=== PATIENT | male | born 1995 | race American Indian/Alaskan Native ===

== ENCOUNTER 2021-05-15 06:52 | Emergency (ER) | payer SELFPAY ==
[2021-05-15] MEDS ORDERED: diphenhydrAMINE 50 MG/ML VIAL IV ONE (07:30)
[2021-05-15] MEDS ORDERED: FAMOTIDINE 20 MG/2 ML INJ IV ONE (07:30)
[2021-05-15] MEDS ORDERED: SODIUM CHLORIDE 0.9% 1000 ML 1,000 ML IV ONE (07:30)
[2021-05-15] MEDS ORDERED: METOCLOPRAMIDE 10 MG/2 ML INJ IV ONE (07:30)
[2021-05-15 07:58] LABS: Basophils # (Auto) 0.1 K/mm3 (0.0-0.1); Basophils % (Auto) 0.5 % (0.0-1.8); Hematocrit 53.2 % (35.5-45.6); Hemoglobin 17.7 gm/dl (11.8-15.2); Lymphocytes # (Auto) 0.7 K/mm3 (1.2-5.4); Lymphocytes % (Auto) 6.1 % (13.4-35.0); Mean Corpuscular HGB Conc 33 % (32-34); Mean Corpuscular Volume 88 fl (84-94); Monocytes # (Auto) 1.4 K/mm3 (0.0-0.8); Monocytes % (Auto) 12.3 % (0.0-7.3); Platelet Count 174 K/mm3 (140-440); Red Blood Count 6.06 M/mm3 (3.65-5.03); Red Cell Distribution Width 13.9 % (13.2-15.2)
[2021-05-15 08:10] LABS: Partial Thromboplastin Time 26.3 Sec. (24.2-36.6)
[2021-05-15 08:28] LABS: Alanine Aminotransferase TNR units/L (7-56)
[2021-05-15 09:22] LABS: Alanine Aminotransferase 25 units/L (7-56); Albumin 4.5 g/dL (3.9-5); BUN/Creatinine Ratio 24; Blood Urea Nitrogen 24 mg/dL (9-20); Calcium 9.2 mg/dL (8.4-10.2); Hemolysis Index 7
--- NOTE | 2021-05-15 09:32 | Cat Scan Report ---
CT ABDOMEN AND PELVIS WITH IV CONTRAST INDICATION: n/v and abdominal pain-PO AND IV contrast pls 100 ml omni 300 . COMPARISON: None available. TECHNIQUE: All CT scans at this facility use dose modulation, automated exposure control, iterative reconstructi on or weight based dosing, when appropriate, to reduce radiation dose to as low as reasonably achieva ble. FINDINGS: Lung Bases: No significant abnormality. Skeletal System: No acute abnormality. ABDOMEN: Liver: No significant abnormality. Gallbladder: No significant abnormality. Bile Ducts: No significant abnormality. Adrenals: No significant abnormality. Right Kidney: No significant abnormality. Left Kidney: No significant abnormality. Pancreas: No significant abnormality. Spleen: No significant abnormality. Upper GI tract: No significant abnormality. Lymph Nodes: No significant adenopathy. Aorta: No significant abnormality. Additional Findings: No significant abnormality. PELVIS: Colon: No acute abnormality. Urinary Bladder and Distal Ureters: No significant abnormality. Appendix: No significant abnormality. Lymph Nodes: No significant adenopathy. Additional Findings: None. IMPRESSION: 1. No acute process in the abdomen or pelvis. 2. Incidental findings, as above. Signer Name: Jose Alfredo Perales MD Signed: 05/15/2021 9:28 AM Workstation Name: [id number]
[2021-05-15] MEDS ORDERED: POTASSIUM CHLORIDE ER 20 MEQ TAB PO ONE (10:11)
--- NOTE | 2021-05-15 10:21 | Emergency Department Report ---
ED Abdominal Pain HPI - General Chief Complaint: Nausea/Vomiting/Diarrhea Stated Complaint: VOMITING Time Seen by Provider: 05/15/21 07:18 Source: patient Mode of arrival: Ambulatory Limitations: No Limitations - History of Present Illness Initial Comments: This is a 26-year-old male nontoxic, well nourished in appearance, no acute signs of distress presents to the ED with c/o of nausea and vomiting and abdominal pain several days. Patient describes vomiting as dark in color. Patient describes abdominal pain as cramping and aching with level of 8/10 diffuse. Patient denies chest pain, short of breath, fever, hemoptysis, blood in stool, chills, headache, stiff neck, numbness or tingling. Patient denies any diarrhea or constipation. Denies any blood in stool. Patient denies any recent travels. Patient stated allergies to amoxicillin. Denies any significant past medical history. Patient denies any alcohol or drug consumption. MD Complaint: abdominal pain -: days(s) Location: diffuse Radiation: none Migration to: no migration Severity: mild Severity scale (0 -10): 8 Quality: aching Consistency: constant Improves With: nothing Worsens With: nothing Associated Symptoms: nausea, vomiting. denies: diarrhea, fever, chills, constipation, dysuria, hematemesis, hematochezia, melena, hematuria, anorexia, syncope - Related Data Previous Rx's Medication Instructions Recorded Last Taken Type Dicyclomine [Bentyl] 20 mg PO Q12H PRN #12 tablet 05/15/21 Unknown Rx Ondansetron [Zofran Odt] 4 mg PO Q8HR PRN #12 tab.rapdis 05/15/21 Unknown Rx Allergies Allergy/AdvReac Type Severity Reaction Status Date / Time amoxicillin Allergy Swelling Verified 05/15/21 06:58 ED Review of Systems ROS: Stated complaint: VOMITING Other details as noted in HPI Comment: All other systems reviewed and negative Constitutional: denies: chills, fever Eyes: denies: eye pain, eye discharge, vision change ENT: denies: ear pain, throat pain Respiratory: denies: cough, shortness of breath, wheezing Cardiovascular: denies: chest pain, palpitations Endocrine: no symptoms reported Gastrointestinal: abdominal pain, nausea, vomiting. denies: diarrhea, constipation, hematemesis, melena, hematochezia Genitourinary: denies: urgency, dysuria Musculoskeletal: denies: back pain, joint swelling, arthralgia Skin: denies: rash, lesions Neurological: denies: headache, weakness, paresthesias Psychiatric: denies: anxiety, depression Hematological/Lymphatic: denies: easy bleeding, easy bruising ED Past Medical Hx - Past Medical History Previous Medical History?: No - Surgical History Past Surgical History?: No - Medications Home Medications: Home Medications Medication Instructions Recorded Confirmed Last Taken Type Dicyclomine [Bentyl] 20 mg PO Q12H PRN #12 tablet 05/15/21 Unknown Rx Ondansetron [Zofran Odt] 4 mg PO Q8HR PRN #12 tab.rapdis 05/15/21 Unknown Rx ED Physical Exam - General Limitations: No Limitations General appearance: alert, in no apparent distress - Head Head exam: Present: atraumatic, normocephalic - Eye Eye exam: Present: normal appearance - Neck Neck exam: Present: normal inspection, full ROM. Absent: lymphadenopathy - Respiratory Respiratory exam: Present: normal lung sounds bilaterally. Absent: respiratory distress, wheezes, rales, rhonchi, stridor, chest wall tenderness, accessory muscle use, decreased breath sounds, prolonged expiratory - Cardiovascular Cardiovascular Exam: Present: normal rhythm, tachycardia, normal heart sounds. Absent: bradycardia, irregular rhythm, systolic murmur, diastolic murmur, rubs, gallop - GI/Abdominal GI/Abdominal exam: Present: soft, tenderness (Diffuse), normal bowel sounds. Absent: distended, guarding, rebound, rigid, diminished bowel sounds - Extremities Exam Extremities exam: Present: full ROM - Back Exam Back exam: Present: normal inspection, full ROM. Absent: tenderness, CVA tenderness (R), CVA tenderness (L), muscle spasm, paraspinal tenderness, vertebral tenderness, rash noted - Neurological Exam Neurological exam: Present: alert, oriented X3, normal gait - Psychiatric Psychiatric exam: Present: normal affect, normal mood - Skin Skin exam: Present: warm, dry, intact, normal color. Absent: rash ED Course Vital Signs 05/15/21 05/15/21 05/15/21 06:53 12:07 13:04 Temperature 97.7 F Pulse Rate 118 H 87 86 Respiratory 18 98 H 14 Rate Blood Pressure 144/99 122/82 125/83 [Right] O2 Sat by Pulse 100 12 L 98 Oximetry - Reevaluation(s) Reevaluation #1: 05/15/21 10:21 Patient is speaking in full sentences with no signs of distress noted. ED Medical Decision Making - Lab Data Result diagrams: 05/15/21 07:42 05/15/21 08:40 Lab Results 05/15/21 05/15/21 05/15/21 Range/Units 07:42 07:42 07:42 WBC 11.3 H (4.5-11.0) K/mm3 RBC 6.06 H (3.65-5.03) M/mm3 Hgb 17.7 H (11.8-15.2) gm/dl Hct 53.2 H (35.5-45.6) % MCV 88 (84-94) fl MCH 29 (28-32) pg MCHC 33 (32-34) % RDW 13.9 (13.2-15.2) % Plt Count 174 (140-440) K/mm3 Lymph % (Auto) 6.1 L (13.4-35.0) % [place] % (Auto) 12.3 H (0.0-7.3) % Eos % (Auto) 0.0 (0.0-4.3) % Baso % (Auto) 0.5 (0.0-1.8) % Lymph # (Auto) 0.7 L (1.2-5.4) K/mm3 [place] # (Auto) 1.4 H (0.0-0.8) K/mm3 Eos # (Auto) 0.0 (0.0-0.4) K/mm3 Baso # (Auto) 0.1 (0.0-0.1) K/mm3 Seg Neutrophils % 81.1 H (40.0-70.0) % Seg Neutrophils # 9.2 H (1.8-7.7) K/mm3 PT 14.3 (12.2-14.9) Sec. INR 1.00 (0.87-1.13) APTT 26.3 (24.2-36.6) Sec. Sodium TNR Potassium TNR Chloride TNR Carbon Dioxide TNR Anion Gap TNR BUN TNR Creatinine TNR Estimated GFR TNR BUN/Creatinine Ratio TNR Glucose TNR Calcium TNR Total Bilirubin TNR AST TNR ALT TNR Alkaline Phosphatase TNR Total Protein TNR Albumin TNR Albumin/Globulin Ratio TNR Lipase TNR Urine Color (Yellow) Urine Turbidity (Clear) Urine pH (5.0-7.0) Ur Specific Lena (1.003-1.030) Urine Protein (Negative) mg/dL Urine Glucose (UA) (Negative) mg/dL Urine Ketones (Negative) mg/dL Urine Blood (Negative) Urine Nitrite (Negative) Urine Bilirubin (Negative) Urine Urobilinogen (<2.0) mg/dL Ur Leukocyte Esterase (Negative) Urine WBC (Auto) (0.0-6.0) /HPF Urine RBC (Auto) (0.0-6.0) /HPF Urine Mucus /HPF 05/15/21 05/15/21 Range/Units 08:40 11:47 WBC (4.5-11.0) K/mm3 RBC (3.65-5.03) M/mm3 Hgb (11.8-15.2) gm/dl Hct (35.5-45.6) % MCV (84-94) fl MCH (28-32) pg MCHC (32-34) % RDW (13.2-15.2) % Plt Count (140-440) K/mm3 Lymph % (Auto) (13.4-35.0) % [place] % (Auto) (0.0-7.3) % Eos % (Auto) (0.0-4.3) % Baso % (Auto) (0.0-1.8) % Lymph # (Auto) (1.2-5.4) K/mm3 [place] # (Auto) (0.0-0.8) K/mm3 Eos # (Auto) (0.0-0.4) K/mm3 Baso # (Auto) (0.0-0.1) K/mm3 Seg Neutrophils % (40.0-70.0) % Seg Neutrophils # (1.8-7.7) K/mm3 PT (12.2-14.9) Sec. INR (0.87-1.13) APTT (24.2-36.6) Sec. Sodium 141 Potassium 3.5 L Chloride 100.7 Carbon Dioxide 26 Anion Gap 18 BUN 24 H Creatinine 1.0 Estimated GFR > 60 BUN/Creatinine Ratio 24 Glucose 196 H Calcium 9.2 Total Bilirubin 0.30 AST 20 ALT 25 Alkaline Phosphatase 68 Total Protein 7.8 Albumin 4.5 Albumin/Globulin Ratio 1.4 Lipase Urine Color Yellow (Yellow) Urine Turbidity Clear (Clear) Urine pH 6.0 (5.0-7.0) Ur Specific Lena 1.060 H (1.003-1.030) Urine Protein 100 mg/dl (Negative) mg/dL Urine Glucose (UA) Neg (Negative) mg/dL Urine Ketones Neg (Negative) mg/dL Urine Blood Sm (Negative) Urine Nitrite Neg (Negative) Urine Bilirubin Neg (Negative) Urine Urobilinogen 4.0 (<2.0) mg/dL Ur Leukocyte Esterase Neg (Negative) Urine WBC (Auto) < 1.0 (0.0-6.0) /HPF Urine RBC (Auto) 3.0 (0.0-6.0) /HPF Urine Mucus Few /HPF - Radiology Data [facility] [address] [place] [address] Cat Scan Report Signed Patient: DENNIS DENNIS MR#: [id number] : 1995 Acct:[id number] Age/Sex: 26 / M ADM Date: 05/15/21 Loc: ED Attending Dr: Ordering Physician: HAYDEN SAHA NP Date of Service: 05/15/21 Procedure(s): CT abdomen pelvis w con Accession Number(s): [id number] cc: HAYDEN SAHA NP CT ABDOMEN AND PELVIS WITH IV CONTRAST INDICATION: n/v and abdominal pain-PO AND IV contrast pls 100 ml omni 300 . COMPARISON: None available. TECHNIQUE: All CT scans at this facility use dose modulation, automated exposure control, iterative reconstruction or weight based dosing, when appropriate, to reduce radiation dose to as low as reasonably achievable. FINDINGS: Lung Bases: No significant abnormality. Skeletal System: No acute abnormality. ABDOMEN: Liver: No significant abnormality. Gallbladder: No significant abnormality. Bile Ducts: No significant abnormality. Adrenals: No significant abnormality. Right Kidney: No significant abnormality. Left Kidney: No significant abnormality. Pancreas: No significant abnormality. Spleen: No significant abnormality. Upper GI tract: No significant abnormality. Lymph Nodes: No significant adenopathy. Aorta: No significant abnormality. Additional Findings: No significant abnormality. PELVIS: Colon: No acute abnormality. Urinary Bladder and Distal Ureters: No significant abnormality. Appendix: No significant abnormality. Lymph Nodes: No significant adenopathy. Additional Findings: None. IMPRESSION: 1. No acute process in the abdomen or pelvis. 2. Incidental findings, as above. Signer Name: Jose Alfredo Perales MD Signed: 05/15/2021 9:28 AM Workstation Name: [id number] Transcribed By: SANDHYA Dictated By: Jose Alfredo Perales MD Electronically Authenticated By: Jose Alfredo Perales MD Signed Date/Time: 05/15/21927 DD/ 1 TD/TT: - Medical Decision Making This is a 26-year-old male that presents with abdominal pain with nausea vomiting. Patient is stable and was examined by me. Labs obtained. UA obtained. CT of abdomen obtained and dictated by the radiologist. Patient is notified of the report with no questions noted by the patient. Vital signs are stable prior to discharge. Patient received medical treatment in the ED which patient stated symptoms has resovled and subsided. Was instructed note to operate any machinery due to possible drowsiness and stated someone will drive the patient h ome. A by mouth challenge has been obtained and patient tolerated well with no nausea vomiting. Patient was also instructed to Follow-up with a primary care doctor in 3-5 days or if symptoms worsen and continue return to emergency room as soon as possible. At time of discharge, the patient does not seem toxic or ill in appearance. No acute signs of distress noted. Patient agrees to discharge treatment plan of care. No further questions noted by the patient. Critical care attestation.: If time is entered above; I have spent that time in minutes in the direct care o f this critically ill patient, excluding procedure time. ED Disposition Clinical Impression: Abdominal pain Qualifiers: Abdominal location: generalized Qualified Code(s): R10.84 - Generalized abdominal pain Nausea & vomiting Qualifiers: Vomiting type: unspecified Vomiting Intractability: non-intractable Qualified Code(s): R11.2 - Nausea with vomiting, unspecified Disposition: HOME / SELF CARE / HOMELESS Is pt being admited?: No Does the pt Need Aspirin: No Condition: Stable Instructions: Abdominal Pain, Adult, [id number], Nausea and Vomiting, Adult Additional Instructions: Follow-up with a primary care and gripper installer doctor in 3-5 days or if symptoms worsen and continue return to emergency room as soon as possible. Prescriptions: Dicyclomine [Bentyl] 20 mg PO Q12H PRN #12 tablet PRN Reason: abdominal pain Ondansetron [Zofran Odt] 4 mg PO Q8HR PRN #12 tab.rapdis PRN Reason: Nausea Referrals: PRIMARY MD DENNY [Primary Care Provider] - 3-5 Days JOHNNIE DAVALOS MD [Staff Physician] - 3-5 Days [facility] [Provider Group] - 3-5 Days Forms: Work/School Release Form(ED) Time of Disposition: 13:05
[2021-05-15 10:24] LABS: Blood Urea Nitrogen TNR mg/dL (9-20)
[2021-05-15 10:25] LABS: Albumin TNR g/dL (3.9-5); BUN/Creatinine Ratio TNR; Calcium TNR mg/dL (8.4-10.2); Hemolysis Index TNR
[2021-05-15 12:26] LABS: Bilirubin,Urine NEG (Negative); Blood,Urine SM (Negative); Color,Urine Yellow (Yellow); Mucus,Urine FEW /HPF; WBC,Urine < 1.0 /HPF (0.0-6.0)
[2021-05-15 13:04] VITALS: BP 125/83
== END 2021-05-15 13:50 | disposition home or self-care (01) ==
LOC: ED 06:52
DX: R10.84 Generalized abdominal pain (principal); R11.2 Nausea with vomiting, unspecified; Z88.0 Allergy status to penicillin
CPT/HCPCS: 36415; 74177; 80053; 81001; 85025; 85610; 85730; 96361; 96374; 96375; 99284; J1200; J2765; J3490; J7030; Q9967; Q0162

== ENCOUNTER 2021-05-25 18:09 | Observation (INO) | payer SELFPAY ==
[2021-05-25] MEDS ORDERED: SODIUM CHLORIDE 0.9% 1000 ML 1,000 ML IV ONE ×3 (18:24→22:10)
[2021-05-25] MEDS ORDERED: ONDANSETRON 4 MG/2 ML INJ IV ONE ×2 (18:24→22:10)
[2021-05-25 19:18] LABS: Basophils % (Auto) 0.5 % (0.0-1.8); Eosinophils # (Auto) 0.1 K/mm3 (0.0-0.4); Eosinophils % (Auto) 1.2 % (0.0-4.3); Hematocrit 52.1 % (35.5-45.6); Hemoglobin 17.5 gm/dl (11.8-15.2); Lymphocytes # (Auto) 2.4 K/mm3 (1.2-5.4); Lymphocytes % (Auto) 30.4 % (13.4-35.0); Mean Corpuscular HGB Conc 34 % (32-34); Mean Corpuscular Volume 87 fl (84-94); Monocytes # (Auto) 1.1 K/mm3 (0.0-0.8); Monocytes % (Auto) 13.3 % (0.0-7.3); Platelet Count 301 K/mm3 (140-440); Red Blood Count 5.99 M/mm3 (3.65-5.03); Red Cell Distribution Width 13.5 % (13.2-15.2)
[2021-05-25] MEDS ORDERED: FAMOTIDINE 20 MG/2 ML INJ IV ONE (19:21)
[2021-05-25 19:42] LABS: Alanine Aminotransferase 23 units/L (7-56); Albumin 4.2 g/dL (3.9-5); BUN/Creatinine Ratio 13; Blood Urea Nitrogen 17 mg/dL (9-20); Calcium 9.3 mg/dL (8.4-10.2); Hemolysis Index 69
[2021-05-25] MEDS ORDERED: POTASSIUM CHLORIDE ER 20 MEQ TAB PO ONE (19:52)
[2021-05-25] MEDS ORDERED: POTASSIUM CHLORIDE 10 MEQ 10 MEQ/100 ML BAG IV ONE (20:53)
[2021-05-25] MEDS ORDERED: METOCLOPRAMIDE 10 MG/2 ML INJ IV ONE (22:10)
[2021-05-25] MEDS ORDERED: diphenhydrAMINE 50 MG/ML VIAL IV ONE (22:10)
--- NOTE | 2021-05-25 22:37 | Emergency Department Report ---
ED N/V/D HPI - General Chief complaint: Nausea/Vomiting/Diarrhea Stated complaint: NAUSEA/VOMITING Time Seen by Provider: 05/25/21 18:41 Source: patient, old records reviewed Mode of arrival: Ambulatory Limitations: No Limitations - History of Present Illness Initial comments: 26-year-old male with a past medical history of bipolar disorder and depression presents to the hospital with complaints of nausea vomiting with poor p.o. intake for the last 2 weeks. Patient states he usually vomited within 30 minutes of eating anything and is having difficulty tolerating liquids as well. Patient complains of some mild abdominal soreness. He states he passed out in triage after feeling weak. Patient was seen here May 15 with same symptoms. Had unremarkable labs and a CT abdomen pelvis that was negative for acute abnormalities. Patient states he had similar symptoms in October 2020 and never followed up for recommended GI follow-up/endoscopy. Patient states he drinks alcohol on occasion and does use marijuana - Related Data Previous Rx's Medication Instructions Recorded Last Taken Type Dicyclomine [Bentyl] 20 mg PO Q12H PRN #12 tablet 05/15/21 Unknown Rx Ondansetron [Zofran Odt] 4 mg PO Q8HR PRN #12 tab.rapdis 05/15/21 Unknown Rx Allergies Allergy/AdvReac Type Severity Reaction Status Date / Time amoxicillin Allergy Swelling Verified 05/15/21 06:58 ED Review of Systems ROS: Stated complaint: NAUSEA/VOMITING Other details as noted in HPI Comment: All other systems reviewed and negative ED Past Medical Hx - Medications Home Medications: Home Medications Medication Instructions Recorded Confirmed Last Taken Type Dicyclomine [Bentyl] 20 mg PO Q12H PRN #12 tablet 05/15/21 Unknown Rx Ondansetron [Zofran Odt] 4 mg PO Q8HR PRN #12 tab.rapdis 05/15/21 Unknown Rx ED Physical Exam - General Limitations: No Limitations - Other Other exam information: General: No acute distress, thin appearing Head: Atraumatic Eyes: normal appearance ENT: Moist mucous membranes Neck: Normal appearance, no midline tenderness Chest: Clear to auscultation bilaterally CV: Regular rate and rhythm Abdomen: Soft, normal bowel sounds, nontender, nondistended, no rebound or guarding Back: Normal inspection Extremity: Normal inspection, full range of motion Neuro: Alert O x 3, no facial asymmetry, speech clear, no gross motor sensory deficit Psych: Appropriate behavior Skin: No rash ED Course Vital Signs 05/25/21 05/25/21 05/25/21 18:04 18:12 18:16 Temperature 99.2 F Pulse Rate 109 H 107 H Respiratory 13 14 Rate Blood Pressure 105/76 Blood Pressure 105/76 [Left] O2 Sat by Pulse 93 98 98 Oximetry 05/25/21 05/25/21 05/25/21 18:30 18:46 19:00 Temperature Pulse Rate 109 H 99 H 93 H Respiratory 25 H 17 25 H Rate Blood Pressure 105/76 111/83 111/83 Blood Pressure [Left] O2 Sat by Pulse 99 98 97 Oximetry 05/25/21 05/25/21 05/25/21 19:16 19:30 19:46 Temperature Pulse Rate 88 82 94 H Respiratory 22 14 19 Rate Blood Pressure 115/77 115/77 129/81 Blood Pressure [Left] O2 Sat by Pulse 100 98 98 Oximetry 05/25/21 05/25/21 05/25/21 20:00 20:16 20:30 Temperature Pulse Rate 101 H 95 H 98 H Respiratory 17 15 17 Rate Blood Pressure 129/81 135/88 135/88 Blood Pressure [Left] O2 Sat by Pulse 100 100 95 Oximetry 05/25/21 05/25/21 05/25/21 20:46 21:00 21:16 Temperature Pulse Rate 90 88 97 H Respiratory 17 22 21 Rate Blood Pressure 121/87 135/87 135/88 Blood Pressure [Left] O2 Sat by Pulse 98 100 99 Oximetry 05/25/21 05/25/21 05/25/21 21:30 21:46 22:00 Temperature Pulse Rate 85 81 81 Respiratory 10 L 21 20 Rate Blood Pressure 135/87 129/85 129/85 Blood Pressure [Left] O2 Sat by Pulse 99 97 98 Oximetry 05/25/21 05/25/21 05/25/21 22:16 22:30 22:45 Temperature Pulse Rate 87 79 78 Respiratory 26 H 19 12 Rate Blood Pressure 129/85 129/85 129/92 Blood Pressure [Left] O2 Sat by Pulse 99 98 100 Oximetry 05/25/21 23:01 Temperature 98.1 F Pulse Rate Respiratory 17 Rate Blood Pressure Blood Pressure [Left] O2 Sat by Pulse 99 Oximetry - Consultations Consultation #1: 05/25/21 22:55 EKG reviewed and discussed with on-call [facility] mr teacher Dr. leal and states that it is likely repolarization. ED Medical Decision Making - Lab Data Result diagrams: 05/25/21 18:33 05/25/21 23:29 Lab Results 05/25/21 05/25/21 05/25/21 Range/Units 18:33 18:33 18:33 WBC 7.9 (4.5-11.0) K/mm3 RBC 5.99 H (3.65-5.03) M/mm3 Hgb 17.5 H (11.8-15.2) gm/dl Hct 52.1 H (35.5-45.6) % MCV 87 (84-94) fl MCH 29 (28-32) pg MCHC 34 (32-34) % RDW 13.5 (13.2-15.2) % Plt Count 301 (140-440) K/mm3 Lymph % (Auto) 30.4 (13.4-35.0) % [place] % (Auto) 13.3 H (0.0-7.3) % Eos % (Auto) 1.2 (0.0-4.3) % Baso % (Auto) 0.5 (0.0-1.8) % Lymph # (Auto) 2.4 (1.2-5.4) K/mm3 [place] # (Auto) 1.1 H (0.0-0.8) K/mm3 Eos # (Auto) 0.1 (0.0-0.4) K/mm3 Baso # (Auto) 0.0 (0.0-0.1) K/mm3 Seg Neutrophils % 54.6 (40.0-70.0) % Seg Neutrophils # 4.3 (1.8-7.7) K/mm3 Sodium 129 L (137-145) mmol/L Potassium 2.7 L* (3.6-5.0) mmol/L Chloride 79.8 L (98-107) mmol/L Carbon Dioxide 31 H (22-30) mmol/L Anion Gap 21 mmol/L BUN 17 (9-20) mg/dL Creatinine 1.3 (0.8-1.3) mg/dL Estimated GFR > 60 ml/min BUN/Creatinine Ratio 13 % Glucose 146 H (75-100) mg/dL Calcium 9.3 (8.4-10.2) mg/dL Magnesium 2.40 H (1.7-2.3) mg/dL Total Bilirubin 0.50 (0.1-1.2) mg/dL AST 19 (5-40) units/L ALT 23 (7-56) units/L Alkaline Phosphatase 75 (35-129) units/L Total Protein 6.7 (6.3-8.2) g/dL Albumin 4.2 (3.9-5) g/dL Albumin/Globulin Ratio 1.7 % Lipase 31 (13-60) units/L Urine Color (Yellow) Urine Turbidity (Clear) Urine pH (5.0-7.0) Ur Specific [place]rough (1.003-1.030) Urine Protein (Negative) mg/dL Urine Glucose (UA) (Negative) mg/dL Urine Ketones (Negative) mg/dL Urine Blood (Negative) Urine Nitrite (Negative) Urine Bilirubin (Negative) Urine Urobilinogen (<2.0) mg/dL Ur Leukocyte Esterase (Negative) Urine WBC (Auto) (0.0-6.0) /HPF Urine RBC (Auto) (0.0-6.0) /HPF U Epithel Cells (Auto) (0-13.0) /HPF Urine Mucus /HPF Urine Opiates Screen Urine Methadone Screen Ur Barbiturates Screen Ur Phencyclidine Scrn Ur Amphetamines Screen U Benzodiazepines Scrn Urine Cocaine Screen U Marijuana (THC) Screen Drugs of Abuse Note 05/25/21 05/25/21 Range/Units 23:03 23:03 WBC (4.5-11.0) K/mm3 RBC (3.65-5.03) M/mm3 Hgb (11.8-15.2) gm/dl Hct (35.5-45.6) % MCV (84-94) fl MCH (28-32) pg MCHC (32-34) % RDW (13.2-15.2) % Plt Count (140-440) K/mm3 Lymph % (Auto) (13.4-35.0) % [place] % (Auto) (0.0-7.3) % Eos % (Auto) (0.0-4.3) % Baso % (Auto) (0.0-1.8) % Lymph # (Auto) (1.2-5.4) K/mm3 [place] # (Auto) (0.0-0.8) K/mm3 Eos # (Auto) (0.0-0.4) K/mm3 Baso # (Auto) (0.0-0.1) K/mm3 Seg Neutrophils % (40.0-70.0) % Seg Neutrophils # (1.8-7.7) K/mm3 Sodium (137-145) mmol/L Potassium (3.6-5.0) mmol/L Chloride (98-107) mmol/L Carbon Dioxide (22-30) mmol/L Anion Gap mmol/L BUN (9-20) mg/dL Creatinine (0.8-1.3) mg/dL Estimated GFR ml/min BUN/Creatinine Ratio % Glucose (75-100) mg/dL Calcium (8.4-10.2) mg/dL Magnesium (1.7-2.3) mg/dL Total Bilirubin (0.1-1.2) mg/dL AST (5-40) units/L ALT (7-56) units/L Alkaline Phosphatase (35-129) units/L Total Protein (6.3-8.2) g/dL Albumin (3.9-5) g/dL Albumin/Globulin Ratio % Lipase (13-60) units/L Urine Color Yellow (Yellow) Urine Turbidity Clear (Clear) Urine pH 6.0 (5.0-7.0) Ur Specific [place]rough 1.021 (1.003-1.030) Urine Protein 30 mg/dl (Negative) mg/dL Urine Glucose (UA) Neg (Negative) mg/dL Urine Ketones Neg (Negative) mg/dL Urine Blood Neg (Negative) Urine Nitrite Neg (Negative) Urine Bilirubin Neg (Negative) Urine Urobilinogen 2.0 (<2.0) mg/dL Ur Leukocyte Esterase Neg (Negative) Urine WBC (Auto) 8.0 H (0.0-6.0) /HPF Urine RBC (Auto) 3.0 (0.0-6.0) /HPF U Epithel Cells (Auto) < 1.0 (0-13.0) /HPF Urine Mucus Few /HPF Urine Opiates Screen Negative Urine Methadone Screen Negative Ur Barbiturates Screen Negative Ur Phencyclidine Scrn Negative Ur Amphetamines Screen Negative U Benzodiazepines Scrn Negative Urine Cocaine Screen Negative U Marijuana (THC) Screen Positive Drugs of Abuse Note Disclamer - EKG Data -: EKG Interpreted by Nd EKG shows normal: sinus rhythm, intervals (Prolonged QTC 545), QRS complexes (QRS duration 97), ST-T waves (Changes suggestive of early repole (reviewed by [facility] mr teacher)) Rate: normal (78) - EKG Data When compared to previous EKG there are: previous EKG unavailable - Radiology Data Radiology results: report reviewed CT abdomen pelvis w con INDICATION / CLINICAL INFORMATION: n,v. TECHNIQUE: Axial CT images were obtained through the abdomen and pelvis after IV contrast. All CT scans at this location are performed using CT dose reduction for ALARA by means of automated exposure control. COMPARISON: 05/15/2021. FINDINGS: LOWER CHEST: No significant abnormality LIVER: No significant abnormality GALLBLADDER/BILIARY TREE: No significant abnormality PANCREAS: No significant abnormality SPLEEN: No significant abnormality ADRENALS: No significant abnormality KIDNEYS / URETER: No significant abnormality URINARY BLADDER: No significant abnormality REPRODUCTIVE ORGANS: No significant abnormality STOMACH / BOWEL: Small bowel is normal in caliber. The colon is unremarkable. The appendix is normal in caliber. LYMPH NODES: No significant adenopathy. VASCULATURE: No significant abnormality. OTHER: No free air, free fluid, or focal fluid collection is identified. SKELETAL SYSTEM: No acute osseous findings. IMPRESSION: No acute abnormality of the abdomen or pelvis. - Medical Decision Making 26-year-old male with persistent nausea and vomiting despite outpatient treatment. Patient's lab revealed worsening potassium level and sodium level. Patient now has hyponatremia and hypokalemia. Patient received several boluses of normal saline, several antiemetics, p.o. and IV potassium and remains hypokalemic despite repeat blood draw. Patient having intermittent vomiting throughout ED stay. CT abdomen pelvis does not reveal any acute pathology. Patient does smoke marijuana daily therefore it is possible that patient might have hyperemesis secondary to cannabis use. Haldol has been ordered to see if it helps with his recurrent vomiting Critical Care Time: No Critical care attestation.: If time is entered above; I have spent that time in minutes in the direct care of this critically ill patient, excluding procedure time. ED Disposition Clinical Impression: Intractable nausea and vomiting, Hypokalemia, Cannabis abuse, daily use Disposition: 01 HOME / SELF CARE / HOMELESS Is pt being admited?: Yes Condition: Stable Time of Disposition: 00:42
[2021-05-25 22:41] LABS: Bilirubin,Urine NEG (Negative); Blood,Urine NEG (Negative); Color,Urine Yellow (Yellow); Mucus,Urine FEW /HPF
[2021-05-25 22:47] LABS: Amphetamine Screen,Urine Negative; Benzodiazepines Screen,Urine Negative; Cocaine Screen,Urine Negative; Methadone Screen,Urine Negative; Opiate Screen,Urine Negative
[2021-05-25 23:07] LABS: Cannabinoid Screen,Urine Positive
--- NOTE | 2021-05-25 23:34 | Cat Scan Report ---
CT abdomen pelvis w con INDICATION / CLINICAL INFORMATION: n,v. TECHNIQUE: Axial CT images were obtained through the abdomen and pelvis after IV contrast. All CT sc ans at this location are performed using CT dose reduction for ALARA by means of automated exposure c ontrol. COMPARISON: 05/15/2021. FINDINGS: LOWER CHEST: No significant abnormality LIVER: No significant abnormality GALLBLADDER/BILIARY TREE: No significant abnormality PANCREAS: No significant abnormality SPLEEN: No significant abnormality ADRENALS: No significant abnormality KIDNEYS / URETER: No significant abnormality URINARY BLADDER: No significant abnormality REPRODUCTIVE ORGANS: No significant abnormality STOMACH / BOWEL: Small bowel is normal in caliber. The colon is unremarkable. The appendix is normal in caliber. LYMPH NODES: No significant adenopathy. VASCULATURE: No significant abnormality. OTHER: No free air, free fluid, or focal fluid collection is identified. SKELETAL SYSTEM: No acute osseous findings. IMPRESSION: No acute abnormality of the abdomen or pelvis. Signer Name: Cale Alatorre MD Signed: 05/25/2021 11:30 PM Workstation Name: [id number]
[2021-05-25] MEDS ORDERED: HALOPERIDOL LACTATE 5 MG/1 ML INJ IM ONE (23:42)
[2021-05-25] MEDS ORDERED: D5W/0.9% NACL 1,000 ML IV SCH (23:45)
[2021-05-26 00:07] LABS: BUN/Creatinine Ratio 14; Blood Urea Nitrogen 15 mg/dL (9-20); Calcium 7.9 mg/dL (8.4-10.2); Hemolysis Index 17
[2021-05-26] MEDS ORDERED: ONDANSETRON 4 MG/2 ML INJ IV PRN ×2 (00:58→09:06)
[2021-05-26] MEDS ORDERED: MAGNESIUM HYDROXIDE (MOM) ORAL LIQD UDC PO PRN (00:58)
[2021-05-26] MEDS ORDERED: MORPHINE 2 MG/1 ML INJ IV PRN (00:58)
[2021-05-26] MEDS ORDERED: ACETAMINOPHEN 325 MG TAB PO PRN (00:58)
[2021-05-26] MEDS ORDERED: MORPHINE 4 MG/1 ML INJ IV PRN (00:58)
[2021-05-26] MEDS: POTASSIUM CHLORIDE 10 MEQ 10 MEQ/100 ML BAG IV SCH ×4 (01:02→11:04)
--- NOTE | 2021-05-26 01:26 | History and Physical Report ---
History of Present Illness Date of examination: 05/26/21 Date of admission: 05/26/2021 Chief complaint: Nausea and vomiting History of present illness: 26-year-old -[place] Citizen male with significant past medical history of bipolar disorder and depression presenting to the emergency room today complaining of nausea and vomiting with poor oral intake which has been ongoing for about 2 weeks. Patient states that each time he eats he vomits almost about 30 minutes thereafter. He has been having decreased oral intake over the past several days. Patient has also had some mild abdominal discomfort. He has had generalized weakness and fatigue. He denies any chest pain or shortness of breath, no fever or chills, no headache. He feels occasionally dizzy but denies any diaphoresis. Patient was seen here on May 15 with similar symptoms, labs and CT scan of the abdomen at that time was unremarkable. He also had a similar episode in October 2020 whereby follow-up with endoscopy was recommended. However patient did not follow-up. Patient drinks alcohol occasionally and uses marijuana almost on a daily basis. Work-up in the emergency room today, CT of the abdomen and pelvis was unremarkable. Labs however shows hypokalemia of 2.7 and hyponatremia 129. UDS was positive for marijuana. Past History Past Medical History: other (Bipolar disorder) Past Surgical History: No surgical history Social history: other (Uses marijuana almost on a daily basis) Family history: no significant family history Medications and Allergies Allergies Allergy/AdvReac Type Severity Reaction Status Date / Time amoxicillin Allergy Swelling Verified 05/15/21 06:58 Home Medications Medication Instructions Recorded Confirmed Last Taken Type Dicyclomine [Bentyl] 20 mg PO Q12H PRN #12 tablet 05/15/21 Unknown Rx Ondansetron [Zofran Odt] 4 mg PO Q8HR PRN #12 tab.rapdis 05/15/21 Unknown Rx Active Meds: Active Medications Acetaminophen (Acetaminophen 325 Mg Tab) 650 mg PO Q4H PRN PRN Reason: Pain MILD(1-3)/Fever >100.5/MOISE Heparin Sodium (Porcine) (Heparin 5,000 Unit/1 Ml Vial) 5,000 unit SUB-Q Q8HR TRISH Dextrose/Sodium Chloride (D5ns) 1,000 mls @ 999 mls/hr IV DIRECT TRISH Last Admin: 05/26/21 00:47 Dose: 999 mls/hr Documented by: Potassium Chloride (Kcl 10meq/100ml) 10 meq in 100 mls @ 100 mls/hr IV Q1H TRISH Stop: 05/26/21 02:59 Last Admin: 05/26/21 01:02 Dose: 100 mls/hr Documented by: Magnesium Hydroxide (Magnesium Hydroxide (Mom) Oral Liqd Udc) 30 ml PO Q4H PRN PRN Reason: Constipation Morphine Sulfate (Morphine 2 Mg/1 Ml Inj) 2 mg IV Q4H PRN PRN Reason: Pain, Moderate (4-6) Morphine Sulfate (Morphine 4 Mg/1 Ml Inj) 4 mg IV Q4H PRN PRN Reason: Pain , Severe (7-10) Ondansetron HCl (Ondansetron 4 Mg/2 Ml Inj) 4 mg IV Q8H PRN PRN Reason: Nausea And Vomiting Sodium Chloride (Sodium Chloride 0.9% 10 Ml Flush Syringe) 10 ml IV BID TRISH Sodium Chloride (Sodium Chloride 0.9% 10 Ml Flush Syringe) 10 ml IV PRN PRN PRN Reason: LINE FLUSH Review of Systems Constitutional: no fever, no chills Ears, nose, mouth and throat: no nasal congestion, no sore throat Cardiovascular: no chest pain, no palpitations Respiratory: no cough, no shortness of breath Gastrointestinal: abdominal pain, nausea, vomiting, no diarrhea Genitourinary Male: no dysuria, no hematuria, no flank pain, no nocturia Musculoskeletal: no neck pain, no low back pain Integumentary: no rash, no pruritis Neurological: no headaches, no confusion Psychiatric: anxiety, no depression Endocrine: no polyphagia, no polydipsia, no polyuria, no nocturia Exam - Constitutional Vitals: Temp Pulse Resp BP Pulse Ox 97.9 F 74 15 119/74 99 05/26/21 01:03 05/26/21 01:00 05/26/21 01:00 05/26/21 01:00 05/26/21 01:00 General appearance: Present: no acute distress, well-nourished - EENT Eyes: Present: PERRL, EOM intact. Absent: scleral icterus ENT: hearing intact, clear oral mucosa, dentition normal - Neck Neck: Present: supple, normal ROM - Respiratory Respiratory effort: normal Respiratory: bilateral: CTA - Cardiovascular Rhythm: regular Heart Sounds: Present: S1 & S2. Absent: gallop, systolic murmur, diastolic murmur, rub, click - Extremities Extremities: no ischemia, pulses intact, pulses symmetrical, No edema, normal temperature, normal color, Full ROM Peripheral Pulses: within normal limits - Abdominal General gastrointestinal: Present: soft, non-tender, non-distended, normal bowel sounds. Absent: mass - Integumentary Integumentary: Present: clear, warm, dry. Absent: rash - Musculoskeletal Musculoskeletal: strength equal bilaterally - Psychiatric Psychiatric: appropriate mood/affect, intact judgment & insight, memory intact, cooperative - Neurologic Neurologic: CNII-XII intact, no focal deficits, moves all extremities HEART Score - HEART Score Troponin: Troponin T < 0.010 ng/mL (0.00-0.029) 05/25/21 23:29 Results - Labs CBC & Chem 7: 05/25/21 18:33 05/25/21 23:29 Labs: Abnormal lab results 05/25/21 05/25/21 05/25/21 Range/Units 18:33 18:33 18:33 RBC 5.99 H (3.65-5.03) M/mm3 Hgb 17.5 H (11.8-15.2) gm/dl Hct 52.1 H (35.5-45.6) % [place] % (Auto) 13.3 H (0.0-7.3) % [place] # (Auto) 1.1 H (0.0-0.8) K/mm3 Sodium 129 L (137-145) mmol/L Potassium 2.7 L* (3.6-5.0) mmol/L Chloride 79.8 L (98-107) mmol/L Carbon Dioxide 31 H (22-30) mmol/L Glucose 146 H (75-100) mg/dL Calcium (8.4-10.2) mg/dL Magnesium 2.40 H (1.7-2.3) mg/dL Urine WBC (Auto) (0.0-6.0) /HPF 05/25/21 05/25/21 Range/Units 23:03 23:29 RBC (3.65-5.03) M/mm3 Hgb (11.8-15.2) gm/dl Hct (35.5-45.6) % [place] % (Auto) (0.0-7.3) % [place] # (Auto) (0.0-0.8) K/mm3 Sodium 130 L (137-145) mmol/L Potassium 2.7 L* (3.6-5.0) mmol/L Chloride 87.9 L (98-107) mmol/L Carbon Dioxide (22-30) mmol/L Glucose 110 H (75-100) mg/dL Calcium 7.9 L D (8.4-10.2) mg/dL Magnesium (1.7-2.3) mg/dL Urine WBC (Auto) 8.0 H (0.0-6.0) /HPF Assessment and Plan - Patient Problems (1) Intractable nausea and vomiting Current Visit: Yes Status: Acute Plan to address problem: Etiology is unclear. Possibly related to use of marijuana. We will place consult to gastroenterology for evaluation and recommendation. Meanwhile patient has been placed on IV fluid and antiemetic. (2) Hypokalemia Current Visit: Yes Status: Acute Plan to address problem: Possibly secondary to decreased oral intake and intractable nausea and vomiting. Potassium will be repleted. We will monitor chemistry. (3) Cannabis abuse, daily use Current Visit: Yes Status: Acute Plan to address problem: Patient counseled on quitting marijuana abuse. (4) DVT prophylaxis Current Visit: Yes Status: Acute Plan to address problem: Patient placed on subcutaneous heparin. (5) Full code status Current Visit: Yes Status: Acute Plan to address problem: Patient is full code.
[2021-05-26] MEDS ORDERED: HEPARIN 5,000 UNIT/1 ML VIAL SUB-Q SCH (06:00)
[2021-05-26] MEDS: HEPARIN 5,000 UNIT/1 ML VIAL SUB-Q SCH ×3 (07:13→21:49)
[2021-05-26] MEDS: POTASSIUM CHLORIDE ER 20 MEQ TAB PO SCH ×2 (08:55→12:41)
--- NOTE | 2021-05-26 09:02 | Progress Note ---
Assessment and Plan Assessment and plan: -- Intractable nausea and vomiting Current Visit: Yes Status: Acute Etiology is unclear. Possibly related to use of marijuana. We will place consult to gastroenterology for evaluation and recommendation. Meanwhile patient has been placed on IV fluid and antiemetic. CT abdomen and pelvis no acute abnormality noted --severe hypokalemia; K2.7 Current Visit: Yes Status: Acute KCl 40 mEq p.o. every 3 hours x2 IV KCl 20 mEq x 1 Check magnesium --Hyponatremia; Current Visit: Yes Status: Acute Mild improvement, continue normal saline -- Cannabis abuse, daily use Current Visit: Yes Status: Acute Patient counseled on quitting marijuana abuse. --Dehydration; Current Visit: Yes Status: Acute IV fluids, advised plenty of oral fluids Closely monitor -- DVT prophylaxis Current Visit: Yes Status: Acute Plan to address problem: Patient placed on subcutaneous heparin. -- Full code status Current Visit: Yes Status: Acute Plan to address problem: Patient is full code. We will closely monitor the patient and adjust the management as needed Plan of care reviewed with the patient and his nurse Possible discharge in 1 to 2 days if stable Extended care 35 minutes History Interval history: I have seen and examined the patient in ER awaiting room assignment Patient was admitted with intractable nausea vomiting Work-up is consistent with severe hypokalemia Being replaced Hospitalist Physical - Constitutional Vitals: Temp Pulse Resp BP Pulse Ox 97.8 F 68 18 99/52 97 05/26/21 04:34 05/26/21 04:34 05/26/21 04:34 05/26/21 04:34 05/26/21 04:34 General appearance: Present: mild distress, well-nourished - EENT Eyes: Present: PERRL, EOM intact - Neck Neck: Present: supple, normal ROM - Respiratory Respiratory effort: normal Respiratory: bilateral: diminished, negative: rales, rhonchi, wheezing - Cardiovascular Rhythm: regular Heart Sounds: Present: S1 & S2 - Extremities Extremities: no ischemia, No edema - Abdominal General gastrointestinal: soft, tender (Vague tenderness no guarding no rigidity), non-distended, normal bowel sounds - Integumentary Integumentary: Present: clear, warm - Psychiatric Psychiatric: appropriate mood/affect, cooperative - Neurologic Neurologic: moves all extremities HEART Score - HEART Score Troponin: Troponin T < 0.010 ng/mL (0.00-0.029) 05/25/21 23:29 Results - Labs CBC & Chem 7: 05/25/21 18:33 05/26/21 09:41 Labs: Laboratory Last Values WBC 7.9 K/mm3 (4.5-11.0) 05/25/21 18:33 RBC 5.99 M/mm3 (3.65-5.03) H 05/25/21 18:33 Hgb 17.5 gm/dl (11.8-15.2) H 05/25/21 18:33 Hct 52.1 % (35.5-45.6) H 05/25/21 18:33 MCV 87 fl (84-94) 05/25/21 18:33 MCH 29 pg (28-32) 05/25/21 18:33 MCHC 34 % (32-34) 05/25/21 18:33 RDW 13.5 % (13.2-15.2) 05/25/21 18:33 Plt Count 301 K/mm3 (140-440) 05/25/21 18:33 Lymph % (Auto) 30.4 % (13.4-35.0) 05/25/21 18:33 [place] % (Auto) 13.3 % (0.0-7.3) H 05/25/21 18:33 Eos % (Auto) 1.2 % (0.0-4.3) 05/25/21 18:33 Baso % (Auto) 0.5 % (0.0-1.8) 05/25/21 18:33 Lymph # (Auto) 2.4 K/mm3 (1.2-5.4) 05/25/21 18:33 [place] # (Auto) 1.1 K/mm3 (0.0-0.8) H 05/25/21 18:33 Eos # (Auto) 0.1 K/mm3 (0.0-0.4) 05/25/21 18:33 Baso # (Auto) 0.0 K/mm3 (0.0-0.1) 05/25/21 18:33 Seg Neutrophils % 54.6 % (40.0-70.0) 05/25/21 18:33 Seg Neutrophils # 4.3 K/mm3 (1.8-7.7) 05/25/21 18:33 Sodium 130 mmol/L (137-145) L 05/25/21 23:29 Potassium 2.7 mmol/L (3.6-5.0) L* 05/25/21 23:29 Chloride 87.9 mmol/L (98-107) L 05/25/21 23:29 Carbon Dioxide 28 mmol/L (22-30) 05/25/21 23:29 Anion Gap 17 mmol/L 05/25/21 23:29 BUN 15 mg/dL (9-20) 05/25/21 23:29 Creatinine 1.1 mg/dL (0.8-1.3) 05/25/21 23:29 Estimated GFR > 60 ml/min 05/25/21 23:29 BUN/Creatinine Ratio 14 % 05/25/21 23:29 Glucose 110 mg/dL (75-100) H 05/25/21 23:29 Calcium 7.9 mg/dL (8.4-10.2) L D 05/25/21 23:29 Magnesium 2.40 mg/dL (1.7-2.3) H 05/25/21 18:33 Total Bilirubin 0.50 mg/dL (0.1-1.2) 05/25/21 18:33 AST 19 units/L (5-40) 05/25/21 18:33 ALT 23 units/L (7-56) 05/25/21 18:33 Alkaline Phosphatase 75 units/L (35-129) 05/25/21 18:33 Troponin T < 0.010 ng/mL (0.00-0.029) 05/25/21 23:29 Total Protein 6.7 g/dL (6.3-8.2) 05/25/21 18:33 Albumin 4.2 g/dL (3.9-5) 05/25/21 18:33 Albumin/Globulin Ratio 1.7 % 05/25/21 18:33 Lipase 31 units/L (13-60) 05/25/21 18:33 Urine Color Yellow (Yellow) 05/25/21 23:03 Urine Turbidity Clear (Clear) 05/25/21 23:03 Urine pH 6.0 (5.0-7.0) 05/25/21 23:03 Ur Specific F[place] 1.021 (1.003-1.030) 05/25/21 23:03 Urine Protein 30 mg/dl mg/dL (Negative) 05/25/21 23:03 Urine Glucose (UA) Neg mg/dL (Negative) 05/25/21 23:03 Urine Ketones Neg mg/dL (Negative) 05/25/21 23:03 Urine Blood Neg (Negative) 05/25/21 23:03 Urine Nitrite Neg (Negative) 05/25/21 23:03 Urine Bilirubin Neg (Negative) 05/25/21 23:03 Urine Urobilinogen 2.0 mg/dL (<2.0) 05/25/21 23:03 Ur Leukocyte Esterase Neg (Negative) 05/25/21 23:03 Urine WBC (Auto) 8.0 /HPF (0.0-6.0) H 05/25/21 23:03 Urine RBC (Auto) 3.0 /HPF (0.0-6.0) 05/25/21 23:03 U Epithel Cells (Auto) < 1.0 /HPF (0-13.0) 05/25/21 23:03 Urine Mucus Few /HPF 05/25/21 23:03 Urine Opiates Screen Negative 05/25/21 23:03 Urine Methadone Screen Negative 05/25/21 23:03 Ur Barbiturates Screen Negative 05/25/21 23:03 Ur Phencyclidine Scrn Negative 05/25/21 23:03 Ur Amphetamines Screen Negative 05/25/21 23:03 U Benzodiazepines Scrn Negative 05/25/21 23:03 Urine Cocaine Screen Negative 05/25/21 23:03 U Marijuana (THC) Screen Positive 05/25/21 23:03 Drugs of Abuse Note Disclamer 05/25/21 23:03 Active Medications - Current Medications Current Medications: Generic Name Dose Route Start Last Admin Trade Name Freq PRN Reason Stop Dose Admin Acetaminophen 650 mg 05/26/21 00:58 Acetaminophen 325 Mg Tab PO Q4H PRN Pain MILD(1-3)/Fever >100.5/MOISE Heparin Sodium (Porcine) 5,000 unit 05/26/21 06:00 05/26/21 07:13 Heparin 5,000 Unit/1 Ml Vial SUB-Q 5,000 unit Q8HR TRISH Administration Dextrose/Sodium Chloride 1,000 mls @ 999 mls/hr 05/25/21 23:45 05/26/21 00:47 D5ns IV 999 mls/hr DIRECT TRISH Administration Potassium Chloride 10 meq in 100 mls @ 100 mls/hr 05/26/21 08:00 Kcl 10meq/100ml IV 05/26/21 09:59 Q1H TRISH Magnesium Hydroxide 30 ml 05/26/21 00:58 Magnesium Hydroxide (Mom) Oral Liqd Udc PO Q4H PRN Constipation Morphine Sulfate 2 mg 05/26/21 00:58 Morphine 2 Mg/1 Ml Inj IV Q4H PRN Pain, Moderate (4-6) Ondansetron HCl 4 mg 05/26/21 00:58 05/26/21 02:32 Ondansetron 4 Mg/2 Ml Inj IV 4 mg Q8H PRN Administration Nausea And Vomiting Potassium Chloride 40 meq 05/26/21 08:00 Potassium Chloride Er 20 Meq Tab PO 05/26/21 11:01 Q3H TRISH Sodium Chloride 10 ml 05/26/21 10:00 Sodium Chloride 0.9% 10 Ml Flush Syringe IV BID TRISH Sodium Chloride 10 ml 05/26/21 00:58 Sodium Chloride 0.9% 10 Ml Flush Syringe IV PRN PRN LINE FLUSH
--- NOTE | 2021-05-26 10:21 | Consultation ---
History of Present Illness - Reason for Consult Consult date: 05/26/21 acute renal failure, hypokalemia - History of Present Illness The patient is a 26 YO AAM with history significant for Bipolar disorder, Depression and Marijuana use who presented to [facility] ED 05/25 complaining of nausea, vomiting with poor oral intake for the past 2 weeks. Patient states that each time he eats he vomits almost about 30 minutes thereafter. Patient also c/o mid-abdominal discomfort, loose stool, feeling weak and fatigue. He denies any chest pain, shortness of breath, fever, chills, headache, dysuria, he maturia, rash, syncope or sick contact. Per patient he received 2 doses of Covid-19 vaccine. Work-up in the ED, CT of the abdomen and pelvis was unremarkable. Labs; K 2.7, Sodium 129 and Creat 1.3. Nephrology was consulted for further evaluation and PJ and electrolyte abnormalities. Past History Past Medical History: other (Bipolar disorder) Past Surgical History: No surgical history Social history: other (Uses marijuana almost on a daily basis) Family history: no significant family history Medications and Allergies Allergies Allergy/AdvReac Type Severity Reaction Status Date / Time amoxicillin Allergy Swelling Verified 05/15/21 06:58 Home Medications Medication Instructions Recorded Confirmed Last Taken Type Dicyclomine [Bentyl] 20 mg PO Q12H PRN #12 tablet 05/15/21 Unknown Rx Ondansetron [Zofran Odt] 4 mg PO Q8HR PRN #12 tab.rapdis 05/15/21 Unknown Rx Active Meds: Active Medications Acetaminophen (Acetaminophen 325 Mg Tab) 650 mg PO Q4H PRN PRN Reason: Pain MILD(1-3)/Fever >100.5/MOISE Heparin Sodium (Porcine) (Heparin 5,000 Unit/1 Ml Vial) 5,000 unit SUB-Q Q8HR TRISH Last Admin: 05/26/21 07:13 Dose: 5,000 unit Documented by: Dextrose/Sodium Chloride (D5ns) 1,000 mls @ 999 mls/hr IV DIRECT TRISH Last Admin: 05/26/21 00:47 Dose: 999 mls/hr Documented by: Magnesium Hydroxide (Magnesium Hydroxide (Mom) Oral Liqd Udc) 30 ml PO Q4H PRN PRN Reason: Constipation Morphine Sulfate (Morphine 2 Mg/1 Ml Inj) 2 mg IV Q4H PRN PRN Reason: Pain, Moderate (4-6) Ondansetron HCl (Ondansetron 4 Mg/2 Ml Inj) 4 mg IV Q4H PRN PRN Reason: Nausea And Vomiting Potassium Chloride (Potassium Chloride Er 20 Meq Tab) 40 meq PO Q3H [facility] Stop: 05/26/21 11:01 Last Admin: 05/26/21 08:55 Dose: 40 meq Documented by: Sodium Chloride (Sodium Chloride 0.9% 10 Ml Flush Syringe) 10 ml IV BID [facility] Last Admin: 05/26/21 10:03 Dose: 10 ml Documented by: Sodium Chloride (Sodium Chloride 0.9% 10 Ml Flush Syringe) 10 ml IV PRN PRN PRN Reason: LINE FLUSH Review of Systems All systems: negative Exam - Vital Signs Vital signs: Vital Signs Pulse Ox 93 05/25/21 18:04 Results - Lab Results 05/25/21 18:33 05/26/21 09:41 Most recent lab results Calcium 7.9 mg/dL (8.4-10.2) L D 05/25/21 23:29 Magnesium 2.40 mg/dL (1.7-2.3) H 05/25/21 18:33 Assessment and Plan 1. Acute kidney injury: Vasomotor PJ in the setting of volume depletion. CT abdomen negative for hydronephrosis. Monitor renal function. Creatinine level has improved. Avoid nephrotoxic agents. Meds dosage based on GFR. 2. FEN: Hypokalemia, improving, monitor. Hyponatremia, 2/2 volume depletion, IV fluids, monitor. Monitor lytes and volume status. 3. Intractable nausea and vomiting: Etiology is unclear. Gastroenterology consult. 4. Cannabis abuse. Will sign off. Subjective: Patient was seen and examined at the bedside. Examination: General appearance: well-developed, appears stated age, thin built, not in distress HEENT: atraumatic Neck: trachea midline Respiratory: ctab Heart: S1S2, regular, no murmur Abdomen: soft, bowel sounds heard, NT Integumentary: no rash noted Neurologic: AO, moving extremities Ext: no edema noted
[2021-05-26 10:24] LABS: BUN/Creatinine Ratio 14; Blood Urea Nitrogen 11 mg/dL (9-20); Calcium 8.2 mg/dL (8.4-10.2); Hemolysis Index 43
[2021-05-26] MEDS ORDERED: D5NS W/KCL 40 MEQ 40 MEQ/1,000 ML BAG IV SCH (12:00)
[2021-05-26] MEDS: NACL IV SCH (13:47)
[2021-05-26] MEDS: D5W IV SCH (13:47)
[2021-05-26] MEDS: POTASSIUM ACETATE IV SCH (13:47)
[2021-05-27] MEDS: D5W IV SCH (00:35)
[2021-05-27] MEDS: POTASSIUM ACETATE IV SCH (00:35)
[2021-05-27] MEDS: NACL IV SCH (00:35)
[2021-05-27] MEDS: HEPARIN 5,000 UNIT/1 ML VIAL SUB-Q SCH ×2 (05:36→13:45)
[2021-05-27 06:41] LABS: Blood Urea Nitrogen 8 mg/dL (9-20); Calcium 8.3 mg/dL (8.4-10.2); Hemolysis Index 6
[2021-05-27 06:42] LABS: BUN/Creatinine Ratio 11
--- NOTE | 2021-05-27 15:48 | Discharge Summary ---
Providers - Providers Date of Admission: 05/26/21 00:58 Date of discharge: 05/27/21 Attending physician: NATALIA HARRINGTON 05/26/21 00:58 Consult to Physician [CONS] Routine Comment: Consulting Provider: SARY MONREAL Physician Instructions: Reason For Exam: Hyponatremia,hypokalemia Primary care physician: NET DEVELOPER CONSULTANT Hospitalization Condition: Stable Hospital course: -- Intractable nausea and vomiting Current Visit: Yes Status: Acute Etiology is unclear. Possibly related to use of marijuana. We will place consult to gastroenterology for evaluation and recommendation. Meanwhile patient has been placed on IV fluid and antiemetic. CT abdomen and pelvis no acute abnormality noted --severe hypokalemia; K2.7 Current Visit: Yes Status: Acute KCl 40 mEq p.o. every 3 hours x2 IV KCl 20 mEq x 1 Check magnesium --Hyponatremia; Current Visit: Yes Status: Acute Mild improvement, continue normal saline -- Cannabis abuse, daily use Current Visit: Yes Status: Acute Patient counseled on quitting marijuana abuse. --Dehydration; Current Visit: Yes Status: Acute IV fluids, advised plenty of oral fluids Disposition: 01 HOME / SELF CARE / HOMELESS Final Discharge Diagnosis (Prints w/discharge instructions): Intractable nausea vomiting/resolved. Severe hypokalemia/replenished and normal levels today. Hyponatremia present on admission/resolved. History of marijuana use/counseled to quit recreational drug use. Dehydration present on admission/resolved Time spent for discharge: 35 min Core Measure Documentation - Palliative Care Palliative Care/ Comfort Measures: Not Applicable - Core Measures Any of the following diagnoses?: none Exam - Constitutional Vitals: Temp Pulse Resp BP Pulse Ox 98.1 F 69 18 105/57 100 05/27/21 08:20 05/27/21 08:20 05/27/21 08:20 05/27/21 08:20 05/27/21 08:20 Plan Activity: advance as tolerated Diet: regular Additional Instructions: If you have worsening symptoms contact MD or go to the emergency room as needed. Advised to quit recreational drug use. Follow with your primary care physician/[place] [facility] or urgent care center as needed Follow up with: PRIMARY CARE, [Primary Care Provider] - 7 Days Prescriptions: Ondansetron [Zofran Odt] 4 mg PO Q8HR #14 tab.[email or web address]
[2021-05-27 18:01] VITALS: BP 110/67
--- NOTE | 2021-05-28 10:23 | Electrocardiograph Report ---
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
--- NOTE | 2021-05-28 14:21 | Electrocardiograph Report ---
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 Prolonged QT interval No previous ECG available for comparison Electronically Signed On 05-28-2021 14:21:17 EST by Viral Weldon
== END 2021-05-27 16:15 | disposition home or self-care (01) ==
LOC: ED 18:09 → 4A 05-26 00:58
PROVIDERS: ADMIT Internal Medicine Geriatric Medicine; ATTEND Internal Medicine
DX: N17.9 Acute kidney failure, unspecified (principal); R11.2 Nausea with vomiting, unspecified; F12.10 Cannabis abuse, uncomplicated; E87.6 Hypokalemia; F31.9 Bipolar disorder, unspecified; E87.1 Hypo-osmolality and hyponatremia; E86.0 Dehydration; F17.210 Nicotine dependence, cigarettes, uncomplicated; Z79.899 Other long term (current) drug therapy
CPT/HCPCS: 36415; 74177; 80048; 80053; 80307; 81001; 83690; 83735; 84484; 85025; 87641; 93005; 96361; 96365; 96366; 96367; 96372; 96375; 96376; 99285; 99406; G0378; J1200; J1630; J1644; J2270; J2405; J2765; J3480; J3490; J7030; J7042; Q9967; 87116; Q0162